=== PATIENT | female | born 1990 | race Caucasian/White ===

== ENCOUNTER → 2023-10-29 10:15 | Outpatient (REF) | payer OTHER, SELFPAY ==
[2023-10-31 13:40] LABS: Quantiferon Plus TB1 minus NIL 0.01 IU/mL (<=0.34); Quantiferon Plus TB2 minus NIL 0.01 IU/mL (<=0.34); Quantiferon TB Gold Plus Negative (Negative)
[2023-10-31 17:15] LABS: Varicella Zoster IgG (VZV) Positive
== END ==
LOC: OHS 10:15
PROVIDERS: ATTENDING PHYSICIAN Nurse Practitioner Family
DX: Z23 Encounter for immunization (principal)
CPT/HCPCS: 36415; 86480; 86787